=== PATIENT | male | born 1945 | race Caucasian/White ===

== ENCOUNTER 2021-11-08 14:49 | Emergency (ER) | payer MEDICARE, OTHER ==
[2021-11-08 16:13] LABS: HEMOGLOBIN 15.1 gm/dl (14.0-17.5); RED BLOOD COUNT 4.66 M/UL (4.20-5.50); WHITE BLOOD COUNT 7.2 K/UL (4.5-11.0)
[2021-11-08 16:37] LABS: BUN/CREATININE RATIO 17 (0-10)
== END 2021-11-09 00:30 | disposition home or self-care (01) ==
LOC: ER1 14:49
PROVIDERS: Physician Assistant
DX: M54.50 Low back pain, unspecified (principal); M43.8X9 Other specified deforming dorsopathies, site unspecified; R10.9 Unspecified abdominal pain; Z88.0 Allergy status to penicillin
CPT/HCPCS: 72128; 72131; 80053; 81001; 83690; 85025; 87077; 87086; 87186; 96374; 96375; 99285; J1100; J2270; J2405; Q9967